=== PATIENT | female | born 1960 | race Caucasian/White ===

== ENCOUNTER 2017-01-06 02:57 | Emergency (ER) | payer OTHER ==
[~2017-01-06] VITALS: Ht 162.6 cm; Wt 107.2 kg
[~2017-01-06 02:57] MED LIST: ALDACTONE25 MG PO; CLEOCIN PH600 MG/4 M IV; COLACE100 MG PO; COREG3.125 M1 PO; COUMADIN,JANTOVE2 MG PO; COUMADIN4 MG PO; COUMADIN5 MG PO; Coreg PO; Coumadin,Jantoven PO; DIFLUCAN200 MG/101 IV; DILAUDID2 MG PO; DILAUDID4 MG PO; DOC-Q-LACE100 M1; DOXYCYCLINE HY100 M2 IV; DUONEB3 ML IH; EFFEXOR37.5 MG PO; ERGOCALCIF50000 UNIT PO; Ecotrin PO; FAMOTIDINE20 MG PO; FENTANYL1 EAC5 TD; FUROSEMIDE40 MG PO; HYDROMORPHONE HC4 MG PO; HYDROXYZINE HCL25 MG PO; IMDUR30 MG PO; INVANZ1 GM IV; K-DUR20 MEQ PO; K-Dur PO; LASIX20 MG PO; LASIX40 MG PO; LISINOPRIL10 MG PO; LISINOPRIL2.5 MG PO; LISINOPRIL5 MG PO; LOVENOX100 MG/1 M SC; LYRICA75 MG PO; METOCLOPRAMIDE10 MG PO; MORPHINE SULFAT15 M1 PO; MS CONTIN,ORAMO30 M2 PO; MS CONTIN,ORAMO30 MG PO; MS Contin,Oramorph S PO; NEURONTIN600 M1 PO; NIZORAL 2% CREA15 GM TP; NORVASC2.5 MG PO; NORVASC5 MG PO; ONDANSETRON HCL4 M1 PO; OXYCODONE HCL15 MG PO; OXYCODONE HCL5 M1 PO; OXYCODONE HCL5 MG PO; OXYCODONE-ACET1 EACH PO; OXYCODONE10 MG PO; PAROXETINE HCL40 MG PO; PAXIL20 MG PO; PAXIL40 MG PO; PEN-VEE K,VEET500 MG PO; PERCOCET 5/31 TABLET PO; PREDNISONE10 M1 PO; PREDNISONE20 MG PO; PROMETHAZINE HC25 M1 PO; PROMETHAZINE HC50 M1 PO; Percocet 5/325,Endoc PO; Potassium Chloride IV; Protonix PO; RANITIDINE HCL150 M1 PO; REQUIP0.5 MG PO; ROPINIROLE HC0.25 MG PO; Reglan PO; SENNA PLUS TAB1 EACH PO; SENOKOT,SENN1 TABLE1 PO; SIMVASTATIN10 MG PO; STOOL SOFTENER100 MG PO; TIZANIDINE HCL4 MG PO; TORADOL10 MG PO; TYLENOL REGULA325 MG PO; Tylenol Regular Stre PO; VITAMIN D250000 UNIT PO; WARFARIN SODIUM2 MG PO; ZANAFLEX4 M1 PO; ZESTRIL,PRINIVIL5 MG PO; ZOFRAN ODT4 MG PO; Zocor PO; Zofran ODT PO; [UNRECOGNIZED DRUG - OTHER] IV; morphine Sulfate IV
[2017-01-06 03:30] LABS: MCHC 33.5 G/DL (30.0-36.0); MCV 98.4 FL (83-99); MEAN PLAT.VOLUME 9.8 uM^3 (9.5-12.4); PLATELET COUNT 250 K/uL (156-360); RBC DIS.WIDTH-CV 13.2 % (11.8-14.6); RBC DIS.WIDTH-SD 47.8 % (39-53); RED BLOOD COUNT 3.76 M/uL (3.80-5.20); WHITE BLOOD COUNT 10.1 K/uL (4.1-10.2)
[2017-01-06 03:41] LABS: CHLORIDE 104 mEq/L (99-109); POTASSIUM 3.8 mEq/L (3.7-5.4); SODIUM 138 mEq/L (136-147)
[2017-01-06 03:43] LABS: GLUCOSE 85 mg/dL (70-99)
[2017-01-06 03:44] LABS: ANION GAP 9 MEQ/L (2-14)
[2017-01-06 03:46] LABS: GFR ESTIMATE (CALCULATED) > 59 mL/min/
[2017-01-06 03:47] LABS: UREA NITROGEN (BUN) 12 mg/dL (9-23)
[2017-01-06 06:34] VITALS: BP 140/81
== END 2017-01-06 06:36 | disposition home or self-care (01) ==
LOC: EME 02:57
DX: R06.02 Shortness of breath (principal); Z86.711 Personal history of pulmonary embolism; Z79.01 Long term (current) use of anticoagulants; I10 Essential (primary) hypertension; K21.9 Gastro-esophageal reflux disease without esophagitis; Z87.891 Personal history of nicotine dependence; Z86.74 Personal history of sudden cardiac arrest
CPT/HCPCS: 71020; 71275; 80048; 85027; 93005; 99281; 99285; J1100